=== PATIENT | male | born 1955 | race Caucasian/White ===

== ENCOUNTER 2025-02-28 04:30 | Emergency (ER) | payer MEDICARE, SELFPAY ==
[2025-02-28] VITALS (7 sets, daily range): BP systolic 140–174; BP diastolic 84–102; BMI 27.3
[2025-02-28 05:17] LABS: Hematocrit 38.5 % (39.0-52.0); Hemoglobin 13.2 g/dL (13.0-18.0); Mean Corp Hgb Conc. 34.3 g/dL (33.0-37.0); Mean Corpuscular Volume 88.7 fL (80.0-94.0); Nucleated Red Blood Cells % 0 % (-); Platelet Count 105 10^3/uL (130-400); Red Cell Dist. Width 15.0 % (11.5-14.5)
[2025-02-28 05:42] LABS: ALT (SGPT) 17 U/L (0-50); AST (SGOT) 21 U/L (17-59); Albumin 4.0 g/dl (3.5-5.0); Alkaline Phosphatase 76 U/L (38-126); Blood Urea Nitrogen 37 mg/dl (9-20); Calcium 10.8 mg/dl (8.4-10.2); Carbon Dioxide 28 mmol/L (22-30); Chloride 102 mmol/L (98-107); Estimated Creatinine Clearance 42 ml/min; Glucose 118 mg/dl (70-99); Lipase 175 U/L (23-300); Potassium 3.9 mmol/L (3.5-5.1); Sodium 137 mmol/L (135-145); Total Protein 6.8 g/dl (6.3-8.2); eGFR 42.57
[2025-02-28] MEDS: ZOFRAN 4 MG IV (06:02)
[2025-02-28] MEDS: DILAUDID 1 MG IV (06:03)
--- NOTE | 2025-02-28 06:12 | ED.GENMED ---
History of Present Illness
<Lan Pruitt DO - Last Filed: 02/28/25 06:15>
General
Chief Complaint: Abdominal Pain
Source: patient and family
Exam Limitations: none
Time Seen by Provider: 02/28/25 05:16
Nursing documentation reviewed up to this point in time: agreed with
History of Present Illness
History of Present Illness:
70-year-old male presents with abdominal pain upper abdomen woke him out of his sleep he had 2 Coca-[employer]a's and a cheese steak last evening no prior episodes he has sarcoid, renal stones, occasional drinker not to excess, non-smoker denies any prior
abdominal surgeries, no chest pain or shortness of breath
Past History
<Lan Pruitt DO - Last Filed: 02/28/25 06:15>
Past History
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
ED Past Surgical History: Negative Appendectomy, Bowel resection, Cardiac or Cholecystectomy
Social History
Tobacco: Non-smoker
Alcohol: Occasional
Drug: None
Personal:
Living: with family
Employment: Retired
Review of Systems
<Lan Pruitt DO - Last Filed: 02/28/25 06:15>
Review of Systems
All Other Systems: Not applicable
Constitutional: Denies fever or fatigue
Respiratory: Reports no symptoms
Cardiac: Reports no symptoms
ABD/GI: Reports abdominal pain
: Reports no symptoms
Musculoskeletal: Reports no symptoms
Skin: Reports no symptoms
Neurological: Reports no symptoms
Endocrine: Reports no symptoms
Phy Exam
<Lan Pruitt DO - Last Filed: 02/28/25 06:15>
Physical Exam
Physical Exam:
Physical Exam
General: no apparent distress, not acutely ill
Neck: No jaw
Heart: s1/s2 regular rate and rhythm, no murmur. equal radial pulses.
Lungs: no acute respiratory distress. clear bilaterally
Abdomen: Soft mild epigastric tenderness
Neuro: alert and oriented. no focal neurological deficits
Skin: no rash
Psychiatric: well kept. interactive and cooperative
Extremities: no edema.
Course
<Lan Pruitt, DO - Last Filed: 02/28/25 06:15>
Orders/Labs/Results
Orders:
Orders
02/28/25 04:44
Electrocardiogram (*1) Urgent
Reason for Study: Abdominal Pain
EKG- Treatment ONCE
IV Insert/Care/Rem.- Treatment PRN
02/28/25 05:02
Complete Blood Count/With Diff Urgent
Comprehensive Metabolic Panel Urgent
Lipase Urgent
02/28/25 05:53
HYDROmorphone [Dilaudid] 1 mg IV NOW STA
Ondansetron Injectable [Zofran] 4 mg IV NOW STA
02/28/25 06:00
Troponin I Urgent
02/28/25 06:15
CT Abd/pel (oral only)-[facility] Only Urgent
Comment:
Reason For Exam: Upper abdominal pain
Iohexol [Omnipaque] See Protocol PO NOW STA
US Abdomen Complete/Upper Urgent
Comment:
Reason For Exam: Pain
Abnormal Lab Results
02/28/25
05:02
RBC 4.34 L 10^6/uL
(4.70-6.10)
Hct 38.5 L %
(39.0-52.0)
RDW 15.0 H %
(11.5-14.5)
Plt Count 105 L 10^3/uL
(130-400)
Absolute Lymphs (auto) 0.9 L 10^3/uL
(1.2-3.4)
Absolute Monos (auto) 0.8 H 10^3/uL
(0.1-0.6)
Immature Gran % 0.7 H %
(0-0.5)
Lymphocytes % 15.8 L %
(20.5-51.1)
Monocytes % 13.4 H %
(1.7-9.3)
BUN 37 H mg/dl
(9-20)
Creatinine 1.7 H mg/dL
(0.7-1.3)
Glucose 118 H mg/dl
(70-99)
Calcium 10.8 H mg/dl
(8.4-10.2)
02/28/25 05:02
02/28/25 05:02
Vital Signs
Initial and Last Documented VS:
Initial Vital Signs
Temp Pulse Resp BP Pulse Ox
36.4 C 70 20 174/102 98
02/28/25 04:31 02/28/25 04:31 02/28/25 04:31 02/28/25 04:31 02/28/25 04:31
Last Documented Vital Signs
Temp Pulse Resp BP Pulse Ox
36.4 C 74 16 141/86 98
02/28/25 04:31 02/28/25 10:00 02/28/25 10:00 02/28/25 10:00 02/28/25 10:00
<Adonis Rosario MD - Last Filed: 02/28/25 10:53>
Orders/Labs/Results
Orders:
Orders
02/28/25 04:44
Electrocardiogram (*1) Urgent
Reason for Study: Abdominal Pain
EKG- Treatment ONCE
IV Insert/Care/Rem.- Treatment PRN
02/28/25 05:02
Complete Blood Count/With Diff Urgent
Comprehensive Metabolic Panel Urgent
Lipase Urgent
02/28/25 05:53
HYDROmorphone [Dilaudid] 1 mg IV NOW STA
Ondansetron Injectable [Zofran] 4 mg IV NOW STA
02/28/25 06:00
Troponin I Urgent
02/28/25 06:15
CT Abd/pel (oral only)-[facility] Only Urgent
Comment:
Reason For Exam: Upper abdominal pain
Iohexol [Omnipaque] See Protocol PO NOW STA
US Abdomen Complete/Upper Urgent
Comment:
Reason For Exam: Pain
Abnormal Lab Results
02/28/25
05:02
RBC 4.34 L 10^6/uL
(4.70-6.10)
Hct 38.5 L %
(39.0-52.0)
RDW 15.0 H %
(11.5-14.5)
Plt Count 105 L 10^3/uL
(130-400)
Absolute Lymphs (auto) 0.9 L 10^3/uL
(1.2-3.4)
Absolute Monos (auto) 0.8 H 10^3/uL
(0.1-0.6)
Immature Gran % 0.7 H %
(0-0.5)
Lymphocytes % 15.8 L %
(20.5-51.1)
Monocytes % 13.4 H %
(1.7-9.3)
BUN 37 H mg/dl
(9-20)
Creatinine 1.7 H mg/dL
(0.7-1.3)
Glucose 118 H mg/dl
(70-99)
Calcium 10.8 H mg/dl
(8.4-10.2)
02/28/25 05:02
02/28/25 05:02
Vital Signs
Initial and Last Documented VS:
Initial Vital Signs
Temp Pulse Resp BP Pulse Ox
36.4 C 70 20 174/102 98
02/28/25 04:31 02/28/25 04:31 02/28/25 04:31 02/28/25 04:31 02/28/25 04:31
Last Documented Vital Signs
Temp Pulse Resp BP Pulse Ox
36.4 C 74 16 141/86 98
02/28/25 04:31 02/28/25 10:00 02/28/25 10:00 02/28/25 10:00 02/28/25 10:00
<Lan Pruitt, DO - Last Filed: 02/28/25 06:15>
MDM/Problems Addressed
Differential Diagnosis Includes:
Gastritis pancreatitis biliary colic obstruction
MDM/Problems Addressed:
Abdominal pain
Chronic conditions affecting care:
Sarcoid stone
Acute Exacerbation and/or Progression of Chronic Illness:
Sarcoid kidney stones
<Lan Pruitt DO - Last Filed: 02/28/25 06:15>
*Radiology
Radiology exam reviewed: radiology read reviewed
*Pulse Oximetry
SaO2: 96
Oxygen Mode of Delivery: Room air
Patient hypoxic: no
*EKG
Interpreted by ED Provider?: Yes
Interpretation: abnormal
Comparison EKG: no comparison EKG present
Heart Rate: 78
Rate: normal
Rhythm: sinus
Ischemia: non-specific ST changes
*Agency Sales Director Interpretation
Rate: normal
Interpretation: normal
Heart Rate: 78
Rhythm: sinus
*Critical Care Note
Total Time (30-74mins, 75-104mins- exclusive of procedures): Not Applicable
ED Attending Note
<Lan Pruitt DO - Last Filed: 02/28/25 06:15>
-
Portions of this chart may have been created with voice recognition software.� Occasional wrong word or��sound alike� substitutions may have occurred due to the inherent limitations of voice recognition software.
<Adonis Rosario MD - Last Filed: 02/28/25 10:53>
ED Attending Note
ED Attending Note:
UPDATE (Adonis Rosario MD)
I have seen and evaluated the patient after signout and reviewed all labs and imaging.
Focused HPI: 70-year-old male with history as noted presents to the ER for evaluation of abdominal pain. Patient reports it woke him up around 2:30 AM. Pain located in the epigastrium towards the right upper quadrant. He says that by the time of
my assessment his symptoms have essentially resolved. He did have some nausea but no vomiting. No fevers or chills. No constipation in fact had some loose stools yesterday. Denies having had similar symptoms in the past�does have a history of
kidney stones but today symptoms very different.
Physical exam: Awake and alert resting comfortably not in any distress. Abdomen soft and completely nontender to deep palpation. Sclera anicteric. Extremities warm well-perfused.
Medical Decision Makin-year-old male presented with upper abdominal pain as described above. Symptoms have resolved by my assessment. He had labs sent off including a CBC and a CMP�CMP did show some renal insufficiency�I discussed with
patient he says this is a known chronic issue and that he follows closely as an outpatient for this. He had an EKG and troponin�EKG nonischemic, troponin undetectable. Imaging was pending on signout�reviewed final results and they were significant
for cholelithiasis but no signs of acute cholecystitis on ultrasound and CT. Symptoms have improved, no LFT abnormalities and no tenderness. Picture consistent with biliary colic. I do long discussion with the patient he feels comfortable with
discharge and outpatient surgical referral. We spoke about return precautions, dietary adjustments including avoiding fatty foods. All questions answered.
Discharge Plan
Departure
Patient Disposition: Home (Routine Discharge)
Date of Disposition: 02/28/25
Time of Disposition: 09:46
Patient with high blood pressure during this ER visit?: Yes
Discharge Problem:
Cholelithiasis
Instructions: Gallstones (DC), Low-fat diet
Referrals:
Clint Ch MD [Family Provider, Surgical]
Sunny Diallo MD [Active, Surgical] - Call in 1-3 days for appt
Referral Note: General surgery
Activity Restrictions/Additional Instructions:
Thank you for visiting the Emergency Department at [facility].
1. Please schedule a follow up appointment as directed. Call first thing tomorrow morning to make an appointment.
2. If indicated, please take your medications as instructed and indicated on discharge paperwork.
3. If any of your symptoms do not improve, or persist, or become more severe within 6-12 hours, please return to the emergency department for further care.
4. Please return to the emergency department if you develop a headache, neck pain/stiffness, fever greater than 100.4F, chest pain, shortness of breath, persistent nausea, vomiting, slurred speech, difficulty walking, numbness/tingling, weakness,
signs of infection or any other symptoms that are worrisome to you.
Please call [phone] if you have any questions.
Interventions
Interventions:
*Risk Screen - Suicide Last Done: 02/28/25 04:31
*General Assessment Last Done: 02/28/25 04:47
*Neglect/Abuse Screening Last Done: 02/28/25 04:31
*ED- Fall Risk Assessment Last Done: 02/28/25 04:47
*ED COVID-19 Vaccine History Last Done: 02/28/25 04:47
*Nursing Disposition Last Done: 02/28/25 10:10
GC-Jibind-Iuergsfepm Assessment Last Done: 02/28/25 05:23
Discharge Date and Time
Discharge Date/Time: 02/28/25 10:10
Print Language: [id number]
[2025-02-28] MEDS: OMNIPAQUE 50 ML PO (06:27)
[2025-02-28 06:57] LABS: Troponin I < 0.012 ng/ml
--- NOTE | 2025-02-28 08:43 | EDRN ---
Pt OOB to BR at this time.
== END 2025-02-28 10:10 | disposition home or self-care (01) ==
LOC: EMR 04:30
PROVIDERS: EMERGENCY PHYSICIAN Emergency Medicine; FAMILY PHYSICIAN Family Medicine
DX: K80.20 Calculus of gallbladder without cholecystitis without obstruction (principal); N28.9 Disorder of kidney and ureter, unspecified; D86.9 Sarcoidosis, unspecified; Z87.442 Personal history of urinary calculi; Z90.49 Acquired absence of other specified parts of digestive tract
CPT/HCPCS: 99284; 96374; 96375; 74176; 76700; 80053; 83690; 84484; 85025; 93005

== ENCOUNTER → 2025-03-16 13:34 | Outpatient (REF) | payer MEDICARE, SELFPAY | LOC: SDSPAT 13:34 | PROVIDERS: ATTENDING PHYSICIAN Surgery; FAMILY PHYSICIAN Family Medicine | DX: K80.50 Calculus of bile duct without cholangitis or cholecystitis without obstruction (principal) | CPT/HCPCS: 36415; 93005 ==

== ENCOUNTER 2025-03-29 06:11 | Day surgery (SDC) | payer MEDICARE, SELFPAY ==
[2025-03-16 14:08] VITALS: BMI 27.4
--- NOTE | 2025-03-18 12:32 | PTCARENOTE ---
Patients 02/28 Creat- 1.7; GFR- 42.57- Denia @ Dr. Small office notified
[2025-03-29] VITALS (9 sets, daily range): BP systolic 109–125; BP diastolic 65–81; BMI 27.4
[2025-03-29] MEDS: TYLENOL 1000 MG PO (07:00)
[2025-03-29] MEDS: HEPARIN 5000 UNITS SC (07:01)
[2025-03-29] MEDS: IC GREEN 2.5 MG IV (07:01)
[2025-03-29] MEDS: NORMOSOL-R/PLASMALYTE-A 1000 IV (07:20)
--- NOTE | 2025-03-29 08:58 | W.IMMPOSTOP ---
Surgical Immed Post Op Note
-
Primary Surgeon: Rebeca
Assisting: Flavio YORK
Pre-op Diagnosis: Biliary colic
Post-op Diagnosis: Chronic cholecystitis
Procedure Performed: Robotic cholecystectomy with intraoperative near infared imaging of major extrahepatic bile ducts
Anesthesia Type: GETA
Specimen / Cultures: Gallbladder
Estimated Blood Loss: 10cc
Complications: None immediate
Operative Findings: Scarred gallladder with thickened wall and filmy omental adhesions, obliterated posterior plane, spillage of thick dark bile, suction irrigation used
--- NOTE | 2025-03-29 09:01 | OR.RPT ---
Operative Report
Operative Report
Primary Surgeon: Rebeca
Assisting: Flavio YORK
Pre-op Diagnosis: Biliary colic
Post-op Diagnosis: Chronic cholecystitis, umbilical hernia
Procedure Performed: Robotic cholecystectomy with intraoperative near infared imaging of major extrahepatic bile ducts and primary repair of umbilical hernia
Anesthesia Type: GETA
Specimen / Cultures: Gallbladder
Estimated Blood Loss: 10cc
Complications: None immediate
Operative Findings: Scarred gallbladder with thickened wall and filmy omental adhesions, obliterated posterior plane, spillage of thick dark bile, suction irrigation used
DOS: 03/29/25
Indications: This 70M developed biliary colic. Imaging showed a 1.5cm gallstone without stigmata of acute cholecystitis. His liver function studies were within normal limits. Laparoscopic cholecystectomy with robotic assist was elected.
Description of procedure: The patient was placed on the operating table in the supine position. General anesthesia was induced. A time-out was completed verifying correct patient, procedure,
site, positioning, and special equipment prior to beginning this procedure. An orogastric tube was placed. The abdomen was prepped and draped in the usual sterile fashion. The drain was prepped into the field. A stab incision was made in left upper
quadrant and the Veress needle was inserted. Proper position was confirmed by aspiration and saline meniscus test. The abdomen was insufflated with carbon dioxide to a pressure of 12 mmHg. The patient tolerated insufflation well.
An 8mm optical trocar was then inserted in the left upper quadrant. The laparoscope was inserted and the abdomen inspected. No injuries from initial trocar placement or Veress needle insertion were noted. Additional 8mm trocars were then inserted in
the following locations: at the umbilicus through the existing hernia defect, right mid clavicular line at the level of the umbilicus and 6cm lateral to this on the right. The abdomen was inspected and no abnormalities were found. The table was
placed in the reverse Trendelenburg position with the right side up. The dome of the gallbladder was grasped with an atraumatic grasper and retracted over the dome of the liver. Filmy adhesions to the omentum were bluntly taken down. The
infundibulum was grasped with an atraumatic grasper and retracted toward the right lower quadrant. Dense omental adhesions to the fundus and infundibulum were taken down. This area was densly scarred. This maneuver exposed Calot�s triangle. The
peritoneum overlying the gallbladder infundibulum was then incised and the cystic duct and cystic artery identified and circumferentially dissected so that a clear view of the liver was achieved through a window between the cystic duct an cystic
artery. . At this time, the only two structures going into the gallbladder were the cystic artery and cystic duct. ICG was used to visualize the cystic and common ducts and the common duct was protected.
The cystic duct was then doubly clipped and divided and the and cystic artery was controlled with bipolar and divided. Both structures were taken close to the gallbladder. The gallbladder was then dissected from its peritoneal attachments by
electrocautery. The posterior plane was obliterated and a defect in the galbladder wall opened in this area and a small amount of bile and sludge spilled. This was irrigated thoroughly with warm sterile saline. Hemostasis was assured and the
gallbladder and contained stones were removed using an endoscopic retrieval bag placed through the umbilical port. The gallbladder was passed off the table as a specimen. The gallbladder fossa was irrigated with copious sterile saline and hemostasis
was again assured. There was no evidence of bleeding from the gallbladder fossa or cystic artery or leakage of the bile from the cystic duct stump. The umbilical trocar site inclusive of the hernia defect was closed at the fascial level
laparoscopically with 2-0 PDS. Secondary trocars were removed under direct vision and noted to be hemostatic. The laparoscope was withdrawn and the umbilical trocar removed. The abdomen was allowed to collapse. The skin was closed with subcuticular
sutures of 4-0 monocryl and topical skin adhesive. The orogastric tube was removed.
The patient tolerated the procedure well and was taken to the postanesthesia care unit in stable condition.
== END 2025-03-29 11:47 | disposition home or self-care (01) ==
LOC: SDS 06:11
PROVIDERS: ATTENDING PHYSICIAN Surgery
DX: K80.50 Calculus of bile duct without cholangitis or cholecystitis without obstruction (principal); K42.9 Umbilical hernia without obstruction or gangrene; K66.0 Peritoneal adhesions (postprocedural) (postinfection)
CPT/HCPCS: 47563; 88304

== ENCOUNTER 2025-06-22 21:33 | Inpatient (IN) | payer OTHER, MEDICARE, SELFPAY ==
[2025-06-22] VITALS (8 sets, daily range): BP systolic 109–170; BP diastolic 59–90; BMI 26.5
[2025-06-22 15:39] LABS: Urine Character Clear (Clear)
[2025-06-22 15:54] LABS: Urine White Cell 26-30 /HPF (0-5)
[2025-06-22 15:56] LABS: Hematocrit 38.6 % (39.0-52.0); Hemoglobin 13.2 g/dL (13.0-18.0); Mean Corp Hgb Conc. 34.2 g/dL (33.0-37.0); Mean Corpuscular Volume 90.2 fL (80.0-94.0); Nucleated Red Blood Cells % 0 % (-); Platelet Count 115 10^3/uL (130-400); Red Cell Dist. Width 15.0 % (11.5-14.5)
[2025-06-22 15:59] LABS: ALT (SGPT) 17 U/L (0-50); AST (SGOT) 21 U/L (17-59); Albumin 4.4 g/dl (3.5-5.0); Alkaline Phosphatase 72 U/L (38-126); Blood Urea Nitrogen 45 mg/dl (9-20); Calcium 10.9 mg/dl (8.4-10.2); Carbon Dioxide 31 mmol/L (22-30); Chloride 94 mmol/L (98-107); Glucose 85 mg/dl (70-99); Lipase 94 U/L (23-300); Potassium 4.5 mmol/L (3.5-5.1); Sodium 131 mmol/L (135-145); Total Protein 7.7 g/dl (6.3-8.2); eGFR 20.70
--- NOTE | 2025-06-22 18:34 | ED.GENMED ---
History of Present Illness
General
Chief Complaint: Abdominal Pain
Source: patient
Exam Limitations: none
Time Seen by Provider: 06/22/25 18:07
History of Present Illness
History of Present Illness:
70-year-old male presents with right mid abdominal pain intermittent over the past 2 to 3 days worse today with associated nausea. No urinary symptoms or fever. No chest pain or shortness of breath. He denies any hematuria. He has been followed
by a sand blaster and a urologist. He has a prior and recent history of cholecystectomy. No other complaints
Past History
Past History
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
ED Past Surgical History: Negative Appendectomy, Bowel resection, Cardiac or Cholecystectomy
Social History
Tobacco: Non-smoker
Alcohol: Occasional
Drug: None
Personal:
Living: with family
Employment: Retired
Phy Exam
Physical Exam
Physical Exam:
General: Well-appearing male no acute respiratory distress
HEENT: Normal cephalic atraumatic
Heart: Regular rate and rhythm
Lungs: Clear no wheeze
Abdomen is soft tender to the right mid abdomen and right lower abdomen no guarding none this
Extremities: No cyanosis
Skin warm no rash
Course
Orders/Labs/Results
Orders:
Orders
06/22/25 15:06
Complete Blood Count/With Diff Urgent
Comprehensive Metabolic Panel Urgent
Lipase Urgent
Urinalysis Reflex To Culture Urgent
Date Specimen was Collected: 06/22/25
Time Specimen was Collected: 14:52
Urine Microscopic Reflex Cult Urgent
Urine Culture Urgent
KIM Source: U
Specimen Description:
Date Specimen was Collected: 06/22/25
Time Specimen was Collected: 14:52
06/22/25 18:22
CT Abd/pel Without Iv Or Oral Urgent
Comment:
Reason For Exam: right flank pain, hematuria
06/22/25 20:40
0.9% Sodium Chloride 1000 ml [Nss] 1,000 ml IV BOLUS
06/22/25 20:47
CefTRIAXone [Rocephin] 1,000 mg IV NOW STA
06/22/25 21:09
Fentanyl Citrate/Pf [Sublimaze] 25 mcg IV [id number] PRN
HYDROmorphone [Dilaudid] 0.25 mg IV PACU-Q5MPRN PRN
HYDROmorphone [Dilaudid] 0.5 mg IV PACU-Q5MPRN PRN
Ondansetron Injectable [Zofran] 4 mg IV PACU-ONCEPRN PRN
Prochlorperazine [Compazine] 5 mg IV PACU-ONCEPRN PRN
Notify MD As Directed
Notify physician if: for SDS patients with known or suspected sleep obstructive sleep apnea, monitor in the
PACU.
Notify MD for any apneic/desaturation episodes
O2 Therapy [RESP] Urgent
Titrate/Wean O2 to maintain O2 sat greater than (%): 92
Special Instructions: -Provide supplemental oxygen to achieve O2 sat of 92% or greater.
-After 15 min, may wean O2 and discontinue if patient is able to maintain O2 sat of 92%
or greater during recovery period.
If patient is a discharge home, without oxygen therapy, notify anestheiologist if
unable to maintain O2 SAT of 92% or greater on room air for MD clearance.
06/22/25 21:14
Admit/Transfer Patient As Directed
Co-Sign Provider:
Level of Care: Inpatient admission
Assign to:: Medical/Surgical
Physician / Group: elkin
Diagnosis: ureteral stones
Reason for Hospitalization: ureteral stones
Expected length of stay greater than two midnights?: Yes
ELOS- Estimated Length of Stay in days: 3
I certify the patient meets the requirements for IP care: Yes
06/22/25 21:15
0.9% Sodium Chloride 1000 ml [Nss] 1,000 ml IV PER PROTOCOL
PRN Pain Medication Management As Directed
May give lesser potent ordered pain med per pt: Yes
preference::
Protocol:: Medication orders for pain may be administered in a
manner that supports deferring to patient preference
when the pt is:
- Requesting an ordered lesser potent pain medication.
Least to most potent pain medications are defined
as: acetaminophen < NSAID < tramadol < opioids
(morphine, oxycodone, hydromorphone).
- Requesting a lesser dose of the same medication IF
ORDERED.
- Requesting a less intrusive route of administration
if both routes are prescribed by the provider (PO <
IV).
06/22/25 21:16
Code Status As Directed
Resuscitation Status: Full Code
06/22/25 22:47
0.9% Sodium Chloride 1000 ml [Nss] 1,000 ml IV 80 mls/hr
Acetaminophen [Tylenol] 650 mg PO Q4HPRN PRN
Bisacodyl [Dulcolax] 10 mg RECTAL X29NTSL PRN
Docusate W/Senna [Senokot-S] 1 tablet PO BIDPRN PRN
Montelukast Sodium [Singulair] 10 mg PO HS
Polyethylene Glycol Powder [Miralax] 17 grams PO DAILYPRN PRN
06/22/25 22:47
Activity As Directed
Activity Level: As Tolerated
Pneumatic Compression Sleeves As Directed
Type: Knee high
Vital Signs As Directed
Frequency: Per unit guidelines
DX Deep Vein Thrombosis Video Routine
06/23/25 Breakfast
Regular
At Your Request: Limited Participation
06/23/25 07:12
Basic Metabolic Panel IN AM
Complete Blood Count/No Diff IN AM
06/23/25 08:00
Allopurinol [Zyloprim] 300 mg PO DAILY
Budesonide/Formoterol 80/4.5 [Symbicort 80/4.5 Mcg Inhaler] 2 puff INH R BID
Pantoprazole [Protonix] 40 mg PO DAILY
Primidone [Mysoline] 50 mg PO DAILY
Propranolol [Inderal] 20 mg PO BID
Rosuvastatin Calcium [Crestor] 5 mg PO DAILY
Tamsulosin [Flomax] 0.4 mg PO DAILY
fluticasone propionate 2 spray NASAL DAILY
ipratropium bromide 2 spray NASAL BID
06/23/25 22:00
CefTRIAXone [Rocephin] 1,000 mg IV Q24H
Abnormal Lab Results
06/22/25
15:06
RBC 4.28 L 10^6/uL
(4.70-6.10)
Hct 38.6 L %
(39.0-52.0)
RDW 15.0 H %
(11.5-14.5)
Plt Count 115 L 10^3/uL
(130-400)
MPV 10.6 H fL
(7.4-10.4)
Abs Immat Gran (auto) 0.1 H 10^3/uL
(0-0.05)
Absolute Lymphs (auto) 1.1 L 10^3/uL
(1.2-3.4)
Absolute Monos (auto) 1.3 H 10^3/uL
(0.1-0.6)
Immature Gran % 0.6 H %
(0-0.5)
Lymphocytes % 11.9 L %
(20.5-51.1)
Monocytes % 14.9 H %
(1.7-9.3)
Sodium 131 L mmol/L
(135-145)
Chloride 94 L mmol/L
(98-107)
Carbon Dioxide 31 H mmol/L
(22-30)
BUN 45 H mg/dl
(9-20)
Creatinine 3.1 H mg/dL
(0.7-1.3)
Calcium 10.9 H mg/dl
(8.4-10.2)
Ur Occult Blood Reflex 3+ A
(Negative)
Leukocyte Esterase Rfl 1+ A
(Negative)
Urine RBC 11-15 A /HPF
(0-2)
Urine WBC (Reflex) 26-30 A /HPF
(0-5)
Urine Bacteria (Reflex) Moderate A
(Negative)
Urine Albumin (Reflex) 2+ A
(Neg - Trace)
06/22/25 15:06
06/22/25 15:06
Vital Signs
Initial and Last Documented VS:
Initial Vital Signs
Temp Pulse Resp BP Pulse Ox
98.1 F 76 20 170/89 97
06/22/25 14:48 06/22/25 14:48 06/22/25 14:48 06/22/25 14:48 06/22/25 14:48
Last Documented Vital Signs
Temp Pulse Resp BP Pulse Ox
97.2 F 80 18 132/71 94
06/23/25 07:35 06/23/25 09:09 06/23/25 07:35 06/23/25 09:09 06/23/25 07:35
MDM/Problems Addressed
Differential Diagnosis Includes:
Patient with right mid abdominal pain. Consider renal colic versus appendicitis versus musculoskeletal flank pain versus pyelonephritis
Check urine labs and CT
*Pulse Oximetry
SaO2: 97
Oxygen Mode of Delivery: Room air
Patient hypoxic: no
*Critical Care Note
Total Time (30-74mins, 75-104mins- exclusive of procedures): Not Applicable
Update Note
Update Note:
CT demonstrates bilateral ureteral stones right measuring 5 mm left measuring 3 mm. There is significant hydronephrosis on the right. Workup also demonstrates acute kidney injury with a creatinine of 3.1. It was 1.8 in January of this year.
Notified urology. Will plan on admitting to hospital for further intervention
ED Attending Note
-
Portions of this chart may have been created with voice recognition software.� Occasional wrong word or��sound alike� substitutions may have occurred due to the inherent limitations of voice recognition software.
Discharge Plan
Departure
Patient Disposition: Admit
Date of Disposition: 06/22/25
Time of Disposition: 20:41
Presentation/result/management discussed w/ accepting MD/DO: Hospitalist
Discharge Problem:
Bilateral ureteral calculi, SABRINA (acute kidney injury)
Interventions
Interventions:
*Risk Screen - Suicide Last Done: 06/22/25 14:48
*General Assessment Last Done: 06/22/25 14:48
*Neglect/Abuse Screening Last Done: 06/22/25 14:48
*ED COVID-19 Vaccine History Last Done: 06/22/25 18:28
*ED Influenza Vaccine History Last Done: 06/22/25 18:28
[facility] Fall Risk Assessment Tool Last Done: 06/22/25 18:28
*Nursing Disposition Last Done: 06/22/25 21:51
KE-Rduyao-Islgyypvbq Assessment Last Done: 06/22/25 18:28
Discharge Date and Time
Discharge Date/Time: 06/22/25 21:53
--- NOTE | 2025-06-22 20:49 | HPS.HSE ---
Addendum entered and electronically signed by Jamaal Soto DO 06/22/25 22:29:
Patient seen and examined independently. Agree with findings and plan as set forth by MILTON Amador.
Patient is a 70y M with PMH significant for kidney stones, gout and sarcoidosis who presents to [facility] complaining of RLQ abdominal pain. Pain has been present for the past 2-3 days with increase in severity today. Pain is intermittent. Pos urinary
frequency and urgency. No gross hematuria. No dysuria. No fevers / chills. Patient reports multiple kidney stones in the past requiring multiple prior interventions, stents, etc.
Ass:
Bilateral Ureterolithiasis
SABRINA likely secondary to the above
Mild Hyponatremia
Benign Hypertension
Sarcoidosis
Essential Tremor
History of Gout
GERD
Plan:
To OR this evening for cysto / stent(s).
Admit for further evaluation and treatment.
Hold HCTZ. IVFs overnight.
IV abx for now - follow-up culture data.
Appreciate Urology evaluation and intervention.
Flomax, pain control, etc.
Follow for improvement in renal function.
Original Note:
Family Physician
-
Family Physician: Clint Ch IV, DO
Chief Complaint
-
right mid abdominal devine
History of Present Illness
70-year-old male with PMH for kidney stones, gout, sarcoidosis, GERD, essential Tremor, HLD presents with right mid abdominal pain intermittent over the past 2 to 3 days worse today with associated nausea. he complained of urinary frequency and
urgency. denied fever, chills,chest pain, sob. denied KIM, dizzy or syncope. denied n,v,d.
CT with 4-5 mm calculus in the distal right ureter, few centimeters proximal to the right ureterovesical junction (cannot exclude adjacent/contiguous smaller 2 mm calculus) with moderate right hydroureteronephrosis and moderate right perinephric
stranding.Numerous small bilateral nonobstructing renal calculi.ther is approximate 3 mm calculus in the proximal left ureter,
plan for OR today. admitting for further management.
Medical History
Past Medical History
Past Medical History: Reports Other
Additional Past Medical History:
Cassel cell carcinoma
kidney stones
GOUT
sarcoidosis
GERD
essential Tremor
HLD
Past Surgical History: Reports Other
Additional Past Surgical History:
inguinal hernia with mesh
lithotropsy
wisdom teeth
lymph nodes extraction of left axilla
cholecystectomy
Social History
Tobacco: Non-smoker
Alcohol: Occasional
Personal:
Living: With Family
Family History
Family History: Not pertinent
Allergies / Home Medications
Allergies reflects when Allergies were last updated in [employer].
Home Medications with original date entered in [employer]
Allergy/Medication List:
Allergies
Allergy/AdvReac Type Severity Reaction Status Date / Time
tetanus toxoid, adsorbed Allergy Anaphylaxis Verified 06/22/25 14:51
Home Medications
allopurinol 300 mg tablet 300 mg PO DAILY 03/23/25
budesonide-formoterol HFA 80 mcg-4.5 mcg/actuation aerosol inhaler (Symbicort) 2 puff inhalation BID 03/23/25
cholecalciferol (vitamin D3) 25 mcg (1,000 unit) capsule (Vitamin D3) 25 mcg PO DAILY 03/23/25
fluticasone propionate 50 mcg/actuation nasal spray,suspension 2 spray intranasal DAILY 03/23/25
hydrochlorothiazide 12.5 mg tablet 12.5 mg PO BID 03/23/25
ipratropium bromide 21 mcg (0.03 %) nasal spray 2 spray intranasal BID 03/23/25
montelukast 10 mg tablet 10 mg PO HS 03/23/25
potassium chloride 10 mEq capsule,extended release 10 meq PO DAILY 03/23/25
potassium citrate 10 mEq (1,080 mg) tablet,extended release 10 meq PO BID 03/23/25
primidone 50 mg tablet 100 mg PO DAILY 03/23/25
propranolol 10 mg tablet 20 mg PO BID 03/23/25
rosuvastatin 5 mg tablet 5 mg PO DAILY 03/23/25
tamsulosin 0.4 mg capsule (Flomax) 0.4 mg PO DAILY 03/23/25
tramadol 50 mg tablet 50 mg PO Q6H PRN Pain #20 tabs 03/29/25
Review of Systems
-
Constitutional: Reports No Symptoms
EENT: Reports No Symptoms
Respiratory: Reports No Symptoms
Cardiac: Reports No Symptoms
Abdomen/GI: Reports Abdominal Pain
: Reports Frequency and Urgency
Musculoskeletal: Reports No Symptoms
Skin: Reports No Symptoms
Neurological: Reports No Symptoms
Endocrine: Reports No Symptoms
Hematologic/Lymphatic: Reports No Symptoms
Psych: Reports No Symptoms
Physical Exam
Vital Signs
Vital Signs
Temp Pulse Resp BP Pulse Ox
98.4 F 91 18 136/86 98
06/22/25 20:26 06/22/25 20:26 06/22/25 20:26 06/22/25 20:26 06/22/25 20:26
Physical Exam
General: Well Developed, Well Nourished and No Apparent Distress
HEENT: NormoCephalic, Moist mucous membranes and Atraumatic
Respiratory: Clear
Cardiac: S1/S2 and Regular Rhythm; No Murmur or Rub
GI: Soft, Non Tender, Non Distended and Normal Bowel Sounds; No Organomegaly
Rectal: Deferred by Provider
Musculoskeletal: No Clubbing, No Cyanosis and No Edema
Skin: No Rash
Neuro: AO x 3 and Nonfocal/grossly intact
Psych: Calm
Laboratory Results
-
06/22/25 15:06
06/22/25 15:06
Laboratory Results
Total Bilirubin 0.6 mg/dl (0.2-1.3) 06/22/25 15:06
AST 21 U/L (17-59) 06/22/25 15:06
ALT 17 U/L (0-50) 06/22/25 15:06
Alkaline Phosphatase 72 U/L (38-126) 06/22/25 15:06
Lipase 94 U/L (23-300) 06/22/25 15:06
Data Reviewed
-
CT Scan: Report Reviewed by me
Lab Data: Labs Reviewed by me
Impression/Plan
-
#bilateral ureteral stones
-plan for OR tonight for stent
-iv ceftriaxone and Flomax
-urology following
-CT abdomen pelvis with Approximate 4-5 mm calculus in the distal right ureter, few centimeters proximal to the right ureterovesical junction (cannot exclude adjacent/contiguous smaller 2 mm calculus) with moderate right hydroureteronephrosis and
moderate right perinephric stranding.There is an approximate 3 mm calculus in the proximal left ureter, image 68 series 201 without demonstrable left renal collecting system dilatation.Numerous small bilateral nonobstructing renal calculi.
#Hyponatremia hypovolemia/sabrina
-na 131, cr 3.1
-fluids continued
#essential HTN
-held hctz
#essential tremors
-primidone,propanol continued
#GOUT
-allopurinol continued
#GERD
-PPI continued
#HLD
-statin continued
#hxt of post op hiccups
-ctm
#DVT prophylaxis
-scd
#CODE status
-full code
[2025-06-22] MEDS: NSS 1000 IV (21:34)
[2025-06-22] MEDS: ROCEPHIN 1000 MG IV (21:34)
--- NOTE | 2025-06-22 21:52 | EDRN ---
Patient taken to OR by this Rn accompanied by . had all of patient's belongings including b/l hearing aids.
--- NOTE | 2025-06-22 22:02 | W.PN.URO.CBU ---
Today's Communication / Plan
-
to op room
Assessment / Plan
-
bilateral uretal stones jatinder will stemt atempt removal
Diagnosis
-
Date of Service: June 22, 2025
-
jatinder with prox 3 mm left stone an d new onset rt colic 5 mm distal rt stone bilateral hydro
Post Op Day:
Subjective
-
colic on rt
Objective
-
Vital Signs
Temp Pulse Resp BP Pulse Ox
98.4 F 91 18 136/86 98
06/22/25 20:26 06/22/25 20:26 06/22/25 20:26 06/22/25 20:26 06/22/25 20:26
Laboratory Results
06/22/25 15:06
06/22/25 15:06
Review of Systems
-
Abdomen/GI: Nausea
: Flank Pain
Physical Exam
-
General - well developed, well nourished, no acute distressnon toxic
Chest - clear bilaterally
Abdomen - soft, non-tender, positive bowel sounds, no CVAT, no incisional pain or distention
Genitalia - normal
Rectal - normal
Skin - warm & dry with no rash
Neuro - AOx3, no motor deficits
Extremities - no clubbing, no cyanosis, no edema
Incision - clean, dry
Dressing - clean, dry, intact
Care Review
Data Reviewed
Discussed with: Hospitalist, Nursing and Family
CT Scan: Image Pers Reviewed
--- NOTE | 2025-06-22 22:58 | W.SUR.POST ---
Surgical Immediate Post Op
Note
Pre Op Diagnosis: jatinder due to bilateral ureteral stones
Post Op Diagnosis: same
Procedure Performed:
bilatyeral ureteroscopy bilat laser basket and jj stents
Primary Surgeon:nicole
Secondary Surgeons:
Anesthesiageneral dr alves:
Estimated Blood Loss: 1c
Fluids: nss
Drains/Shunts: bilatral jj stents
Specimens/Cultures: stones
Doppler/Duplex/Angio (Y/N):
Complications0:
Operative Findings:bilateral stones with obstruction
[2025-06-23 00:09] VITALS: BP 133/73; BMI 27.0
--- NOTE | 2025-06-23 00:30 | PTCARENOTE ---
Pt received from PACU via bed at 2345. Pt pleasant, AAOx3, and VSS. Pt receptive to room and call del rosario. Pt bed in lowest position and call del rosario within reach. Pt educated on importance of call del rosario usage, pt relays understanding and cooperation. Will
continue with current plan of care.
[2025-06-23] MEDS: NSS 1000 IV ×2 (00:39→12:52)
[2025-06-23] MEDS: SINGULAIR 10 MG PO (00:41)
[2025-06-23 00:45] VITALS: BP 133/73
[2025-06-23 01:45] VITALS: BP 120/79
[2025-06-23 03:45] VITALS: BP 132/78
[2025-06-23] MEDS: SYMBICORT 80/4.5 MCG INHALER 2 PUFF INH (07:26)
[2025-06-23 07:35] VITALS: BP 132/71
[2025-06-23 08:07] LABS: Hematocrit 35.6 % (39.0-52.0); Hemoglobin 12.4 g/dL (13.0-18.0); Mean Corp Hgb Conc. 34.8 g/dL (33.0-37.0); Mean Corpuscular Volume 89.4 fL (80.0-94.0); Platelet Count 102 10^3/uL (130-400); Red Cell Dist. Width 14.8 % (11.5-14.5)
[2025-06-23 08:32] LABS: Blood Urea Nitrogen 44 mg/dl (9-20); Calcium 9.7 mg/dl (8.4-10.2); Carbon Dioxide 25 mmol/L (22-30); Chloride 97 mmol/L (98-107); Estimated Creatinine Clearance 26 ml/min; Glucose 121 mg/dl (70-99); Potassium 4.6 mmol/L (3.5-5.1); Sodium 131 mmol/L (135-145); eGFR 23.39
--- NOTE | 2025-06-23 08:47 | W.PN.HOSP.TC ---
Today's Communication/Plan
-
Discharge home today if creatinine stable
Assessment / Plan
Assessment / Plan
Impression:
70-year-old male with PMH for kidney stones, gout, sarcoidosis, GERD, essential Tremor, HLD presents with right mid abdominal pain intermittent over the past 2 to 3 days worse today with associated nausea. he complained of urinary frequency and
urgency. denied fever, chills,chest pain, sob. denied KIM, dizzy or syncope. denied n,v,d.
CT with 4-5 mm calculus in the distal right ureter, few centimeters proximal to the right ureterovesical junction (cannot exclude adjacent/contiguous smaller 2 mm calculus) with moderate right hydroureteronephrosis and moderate right perinephric
stranding.Numerous small bilateral nonobstructing renal calculi.ther is approximate 3 mm calculus in the proximal left ureter
Assessment/plan:
Bilateral Ureteral Stones
Patient presented with right mid abdominal pain intermittent over the past 2-3 day
Imaging (CT Abdomen/Pelvis):
Approx. 4�5 mm calculus in distal right ureter, a few cm proximal to UVJ (possible adjacent 2 mm calculus)
Moderate right hydroureteronephrosis and moderate right perinephric stranding
Approx. 3 mm calculus in proximal left ureter (image 68, series 201) without left collecting system dilatation
Numerous small bilateral non-obstructing renal calculi
Status: S/P bilateral ureteroscopy with laser basket and JJ stents by Dr. Henderson
Current Management:
Continue IV ceftriaxone
Continue tamsulosin (Flomax)
Patient wants to go home
Will discharge if repeat creatinine show improving
Acute renal failure on CKD 3B /Hyponatremia
initial Labs: Na 131, Cr 3.1
Plan: Continue IV fluids
creatinine slightly improved
Repeat creatinine today and outpatient after 1 week
Essential Hypertension
Plan: Hold hydrochlorothiazide (HCTZ)
Essential Tremor
Plan: Continue primidone and propranolol
Gout
Plan: Continue allopurinol
GERD
Plan: Continue PPI
Hyperlipidemia
Plan: Continue statin
History of Post-op Hiccups
Plan: Continue to monitor (CTM)
CODE STATUS: Full code
DVT prophylaxis: SCDS
Diet: Regular diet
Family communication: Discussed with at bedside
Disposition: Discharge home today if creatinine stable
Total time spent on today's encounter was 55 minutes which included time spent in counseling the patient/family regarding diagnosis and treatment plan as listed above, goals of care, and symptom management. Case was discussed with nursing staff,
specialists, and care coordinators/case management. All labs and imaging personally reviewed by me. Remainder the time spent in detailed review of previous records, lab data, imaging, and other medical provider documentation.
Anticipated Discharge: Today
Subjective/Interval History
-
Date of Service: June 23, 2025
Patient seen and examined at bedside, denies any chest pain or shortness of breath, no abdominal pain, no nausea, no vomiting, no diarrhea or constipation.
Objective Data
-
Labs:
Laboratory Results
06/23/25
07:12
WBC 7.1
Hgb 12.4 L
Hct 35.6 L
Plt Count 102 L
Sodium 131 L
Potassium 4.6
Chloride 97 L
Carbon Dioxide 25
BUN 44 H
Creatinine 2.8 H
Glucose 121 H
Calcium 9.7
Vital Signs:
Vital Signs
Temp Pulse Resp BP Pulse Ox
97.2 F 80 18 132/71 94
06/23/25 07:35 06/23/25 07:35 06/23/25 07:35 06/23/25 07:35 06/23/25 07:35
I&O
06/22/25 06/23/25 06/24/25
06:59 06:59 06:59
Intake Total 290 / 290
Output Total 750 / 750
Balance -460 / -460
Physical Exam
-
General: Well Developed, Well Nourished, No Apparent Distress and Comfortable
HEENT: Normocephalic, Atraumatic, Moist Mucous Membranes, No Ptosis, PERRLA and Nose Appears Normal
Respiratory: Clear to Auscultation and Non Labored Respirations
Cardiac: Regular Rhythm and S1/S2
Breast: Deferred by me
GI: Soft, Nontender, Nondistended and Normal Bowel Sounds
Genito-urinary: No Costovertebral Tender
Musculoskeletal: No Clubbing, No Cyanosis and No Edema
Skin: Warm
Neuro: Awake, Alert, Oriented, AO x 3 and No Motor Deficits
Psych: Calm
Data Reviewed
-
Diagnostic Radiology: Image personally visualized and interpreted and Report Reviewed by me
CT Scan: Image personally visualized and interpreted and Report Reviewed by me
Ultrasound: Image personally visualized and interpreted and Report Reviewed by me
MRI: Image personally visualized and interpreted and Report Reviewed by me
Medical Tests (Nuc Med, Echo etc): Image personally visualized and interpreted and Report Reviewed by me
Labs: Labs Reviewed by me
Old Records: Reviewed
[2025-06-23] MEDS: INDERAL 20 MG PO (09:09)
[2025-06-23] MEDS: MYSOLINE 50 MG PO (09:10)
[2025-06-23] MEDS: FLOMAX 0.4 MG PO (09:10)
[2025-06-23] MEDS: CRESTOR 5 MG PO (09:10)
[2025-06-23] MEDS: ZYLOPRIM 300 MG PO (09:10)
[2025-06-23] MEDS: PROTONIX 40 MG PO (09:10)
--- NOTE | 2025-06-23 12:45 | CM ---
CM reviewed chart, patient seen bedside with , initial assessment completed.
70-year-old male with PMH for kidney stones, gout, sarcoidosis, GERD, essential Tremor, HLD presents with right mid abdominal pain intermittent over the past 2 to 3 days worse today with associated nausea.
Patient resides with in a two level home, one step to enter, bedroom on second floor.
Patient denies DME, VN/SNF hx.
PCP Clint Ch IV, Pharmacy [facility], confirms insurance.
Patient denies insecurities at home.
to transport home on d.c
CM will continue to follow.
Plan; home with when stable
[2025-06-23 13:47] LABS: Blood Urea Nitrogen 47 mg/dl (9-20); Calcium 9.6 mg/dl (8.4-10.2); Carbon Dioxide 23 mmol/L (22-30); Chloride 100 mmol/L (98-107); Estimated Creatinine Clearance 29 ml/min; Glucose 143 mg/dl (70-99); Potassium 4.5 mmol/L (3.5-5.1); Sodium 130 mmol/L (135-145); eGFR 26.80
--- NOTE | 2025-06-23 13:58 | PTCARENOTE ---
Patient voiding clear yellow urine thus no straight cath intervention. Creatinine trended down to 2.5. Plan for discharge today.
--- NOTE | 2025-06-23 14:03 | W.DCSUMMARY ---
Discharge Summary
Discharge Data
Date of Admission: 06/22/25
Date of Discharge: 06/23/25
Total time spent discharging patient (in min): 40
-
Pending Results: No
Hospital Course
Hospital course
The patient is a 70-year-old male with a past medical history of kidney stones, gout, sarcoidosis, GERD, essential tremor, and hyperlipidemia who presented with intermittent right mid-abdominal pain for 2�3 days, worsening on the day of admission,
associated with nausea. He also reported urinary frequency and urgency. He denied fever, chills, chest pain, shortness of breath, headache, dizziness, syncope, vomiting, or diarrhea.
Initial Evaluation:
CT Abdomen/Pelvis: Revealed a 4�5 mm calculus in the distal right ureter, a few centimeters proximal to the ureterovesical junction, with possible adjacent 2 mm calculus. There was moderate right hydroureteronephrosis and moderate right perinephric
stranding. Additionally, a 3 mm calculus was noted in the proximal left ureter without left collecting system dilatation. Numerous small bilateral non-obstructing renal calculi were also present.
Labs: Sodium 131 mmol/L, Creatinine 3.1 mg/dL (baseline CKD stage 3B).
Hospital Course:
Diagnosed with bilateral ureteral stones and acute kidney injury on CKD stage 3B with hyponatremia.
Underwent bilateral ureteroscopy with laser lithotripsy and basket extraction, followed by placement of bilateral JJ stents by Dr. Henderson.
Post-procedure, patient was maintained on IV ceftriaxone and tamsulosin (Flomax).
IV fluids were administered for renal support and correction of hyponatremia.
Repeat labs showed improvement in creatinine.
Patient remained afebrile, hemodynamically stable, and pain was controlled.
Tolerating diet and ambulating without difficulty.
Discharge Plan:
Discharge home today.
Continue oral hydration and prescribed medications.
Follow-up with urology for stent removal and stone prevention counseling.
Repeat serum creatinine in 1 week as outpatient.
Monitor for fever, worsening pain, or urinary symptoms and return to ED if these occur.
During hospitalization patient was treated from the following
Bilateral Ureteral Stones
Patient presented with right mid abdominal pain intermittent over the past 2-3 day
Imaging (CT Abdomen/Pelvis):
Approx. 4�5 mm calculus in distal right ureter, a few cm proximal to UVJ (possible adjacent 2 mm calculus)
Moderate right hydroureteronephrosis and moderate right perinephric stranding
Approx. 3 mm calculus in proximal left ureter (image 68, series 201) without left collecting system dilatation
Numerous small bilateral non-obstructing renal calculi
Status: S/P bilateral ureteroscopy with laser basket and JJ stents by Dr. Henderson
Current Management:
Continue IV ceftriaxone
Continue tamsulosin (Flomax)
Patient wants to go home
Will discharge if repeat creatinine show improving
Acute renal failure on CKD 3B /Hyponatremia
initial Labs: Na 131, Cr 3.1
Plan: Continue IV fluids
creatinine slightly improved
Repeat creatinine today and outpatient after 1 week
Essential Hypertension
Plan: Hold hydrochlorothiazide (HCTZ)
Essential Tremor
Plan: Continue primidone and propranolol
Gout
Plan: Continue allopurinol
GERD
Plan: Continue PPI
Hyperlipidemia
Plan: Continue statin
History of Post-op Hiccups
Plan: Continue to monitor (CTM)
CODE STATUS: Full code
DVT prophylaxis: SCDS
Diet: Regular diet
Family communication: Discussed with at bedside
Disposition: Discharge home today.
Total time spent on today's encounter was 40 minutes which included time spent in counseling the patient/family regarding diagnosis and treatment plan as listed above, goals of care, and symptom management. Case was discussed with nursing staff,
specialists, and care coordinators/case management. All labs and imaging personally reviewed by me. Remainder the time spent in detailed review of previous records, lab data, imaging, and other medical provider documentation.
Anticipated Discharge: Today
Discharge Plan
-
Patient Disposition: Home (Routine Discharge)
Discharge Diagnosis/Procedures: Bilateral Ureteral Stones
Status: S/P bilateral ureteroscopy with laser basket and JJ stents by Dr. Henderson
Acute renal failure on CKD 3B /Hyponatremia
Diet: As tolerated and Regular
Activity: As tolerated
Referrals:
Kurt Henderson MD [Active, Urology]
Referral Note: you have bilateral ureteral stents expect blood in urine frequency and urgency of urine Call Dr Henderson [phone] to arrange removal in his office
Clint Ch IV DO [Family Provider, [facility]]
Prescriptions:
New
(DME) Basal Metabolic Panel
See Rx Instructions .Route .MEDSUPPLY Qty: 1 0RF
Rx Instructions:
To be done after one week
Diagnosis: Acute renal Faliure
cefdinir 300 mg capsule
300 mg PO BID 5 Days Qty: 10 0RF
Continued
primidone 50 mg Tablet
100 mg PO DAILY
propranolol 10 mg Tablet
20 mg PO BID
tamsulosin [Flomax] 0.4 mg Capsule
0.4 mg PO DAILY
montelukast 10 mg Tablet
10 mg PO HS
allopurinol 300 mg Tablet
300 mg PO DAILY
fluticasone propionate 50 mcg/actuation [place] Pool,Suspension
2 spray INTRANASAL DAILY
ipratropium bromide 21 mcg (0.03 %) [place] Pool,Non-Aerosol
2 spray INTRANASAL BID
rosuvastatin 5 mg Tablet
5 mg PO DAILY
budesonide-formoterol [Symbicort] 80-4.5 mcg/actuation Hfa Aerosol Inhaler
2 puff INHALATION BID
omeprazole 20 mg capsule,delayed release(DR/EC)
20 mg PO DAILY
Held
potassium chloride 10 mEq Capsule, Extended Release
10 meq PO DAILY
Hold Instructions: Hold till seen by PCP
hydrochlorothiazide 12.5 mg Tablet
12.5 mg PO BID
Hold Instructions: Hold till see you PCP
Discontinued
potassium citrate 10 mEq (1,080 mg) Tablet Extended Release
10 meq PO BID
Discharge Orders:
Discharge Patient (As Directed); Ordered 06/23/25
Ordered By: Tiffanie Mendoza
Discharge Date and Time
Print Language: CHINESE
== END 2025-06-23 14:49 | disposition home or self-care (01) | DRG 660 ==
LOC: 4 WEST ACU 21:33
PROVIDERS: Emergency Medicine; Registered Nurse; ADMITTING PHYSICIAN Hospitalist; ATTENDING PHYSICIAN General Practice; EMERGENCY PHYSICIAN Emergency Medicine; FAMILY PHYSICIAN Family Medicine; OTHER PHYSICIAN Specialist
PROC: 0TC68ZZ Extirpation of Matter from Right Ureter, Via Natural or Artificial Opening Endoscopic (ICD-10-PCS; 2025-06-22)
PROC: 0TC78ZZ Extirpation of Matter from Left Ureter, Via Natural or Artificial Opening Endoscopic (ICD-10-PCS; 2025-06-22)
PROC: 0T788DZ Dilation of Bilateral Ureters with Intraluminal Device, Via Natural or Artificial Opening Endoscopic (ICD-10-PCS; 2025-06-22)
DX: N13.2 Hydronephrosis with renal and ureteral calculous obstruction (principal); E87.1 Hypo-osmolality and hyponatremia; N17.9 Acute kidney failure, unspecified; N18.32 Chronic kidney disease, stage 3b; I12.9 Hypertensive chronic kidney disease with stage 1 through stage 4 chronic kidney disease, or unspecified chronic kidney disease; D86.9 Sarcoidosis, unspecified; G25.0 Essential tremor; K21.9 Gastro-esophageal reflux disease without esophagitis; E78.5 Hyperlipidemia, unspecified; M10.9 Gout, unspecified; C4A.9 Merkel cell carcinoma, unspecified; E86.1 Hypovolemia; Z87.442 Personal history of urinary calculi
CPT/HCPCS: 74018; 74176; 76000; 80048; 80053; 81003; 81015; 82365; 83690; 85025; 85027; 87086; 94640; 96374; 99284; C1894